=== PATIENT | male | born 1950 | race Caucasian/White ===

== ENCOUNTER 2020-07-31 09:41 | Emergency (ER) | payer MEDICARE, BC ==
[2020-07-31] MEDS ORDERED: Sodium Chloride 0.9% 10 ML Syringe FLUSH PRN (10:15)
[2020-07-31] MEDS ORDERED: HYDROmorphone 0.5 MG/0.5 ML Syringe IVPUSH ONE ×2 (10:25→12:24)
[2020-07-31] MEDS ORDERED: Ondansetron 4 MG/2 ML SDV IVPUSH ONE (10:25)
[2020-07-31] MEDS ORDERED: Sodium Chloride 0.9% 1,000 ML IV SCH (10:30)
--- NOTE | 2020-07-31 11:52 | EDM.PDOC ---
ED HPI GENERAL MEDICAL PROBLEM - General Chief Complaint: Abdominal Pain Stated Complaint: ABDOMINAL PAIN Time Seen by Provider: 07/31/20 10:14 Source of Information: Reports: Patient, RN Notes Reviewed - History of Present Illness INITIAL COMMENTS - FREE TEXT/NARRATIVE: 69 YO male with onset of R upper quad pain and upper mid abd pain last evening that continue all night and continues today. He has been nauseated, not vomiting. No obvious fever or chills. He had similar sx about a yr ago, work up at that time showed that he "has gallstones" States he has been putting off surgery. Had been doing OK up until yesterday. 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 - Infectious Disease History Infectious Disease History: Reports: Chicken Pox - Past Surgical History HEENT Surgical History: Reports: Tonsillectomy Social & Family History - Tobacco Use Tobacco Use Status *Q: Never Tobacco User Second Hand Smoke Exposure: No - Caffeine Use Caffeine Use: Reports: Coffee - Recreational Drug Use Recreational Drug Use: No ED ROS GENERAL - Review of Systems Review Of Systems: See Below Constitutional: Denies: Fever, Chills HEENT: Reports: No Symptoms Respiratory: Denies: Shortness of Breath Cardiovascular: Denies: Chest Pain GI/Abdominal: Reports: Abdominal Pain, Nausea. Denies: Diarrhea, Vomiting Musculoskeletal: Reports: Back Pain (mild) Skin: Denies: Rash Neurological: Reports: Dizziness (mild) ED EXAM, GI/ABD - Physical Exam Exam: See Below General Appearance: Alert, Moderate Distress Throat/Mouth: Other (oral mucosa dry) Head: Atraumatic Neck: Supple Respiratory/Chest: No Respiratory Distress, Lungs Clear, Normal Breath Sounds Cardiovascular: Regular Rate, Rhythm GI/Abdominal Exam: Tender (Upper mid abd and RUQ). No: Guarding, Rebound Back Exam: No: CVA Tenderness (L), CVA Tenderness (R) Extremities: Normal Inspection, Normal Range of Motion. No: Leg Pain, Increased Warmth, Redness Neurological: Alert, Oriented, No Motor/Sensory Deficits Skin Exam: Warm, Dry, Normal Color Course - Vital Signs Last Recorded V/S: Last Vital Signs Temp 97.2 F 07/31/20 09:58 Pulse 63 07/31/20 09:58 Resp 18 07/31/20 09:58 BP 175/101 H 07/31/20 09:58 Pulse Ox 97 07/31/20 09:58 - Orders/Labs/Meds Orders: Active Orders 24 hr Category Date Time Status Peripheral IV Care [RC] . DIRECTED Care 07/31/20 10:15 Active Abdomen Ltd [US] Stat Exams 07/31/20 10:26 Taken Sodium Chloride 0.9% [Normal Saline] 1,000 ml Med 07/31/20 10:30 Active IV ASDIRECTED Sodium Chloride 0.9% [Saline Flush] Med 07/31/20 10:15 Active 10 ml FLUSH ASDIRECTED PRN Peripheral IV Insertion Adult [OM.PC] Stat Oth 07/31/20 10:15 Ordered Medication Orders Sodium Chloride (Normal Saline) 1,000 mls @ 150 mls/hr IV ASDIRECTED MEGAN Last Admin: 07/31/20 10:39 Dose: 150 mls/hr Documented by: RISSA Sodium Chloride (Saline Flush) 10 ml FLUSH ASDIRECTED PRN PRN Reason: Keep Vein Open Last Admin: 07/31/20 10:39 Dose: 10 ml Documented by: RISSA Labs: Laboratory Tests 07/31/20 07/31/20 07/31/20 Range/Units 10:36 10:36 10:36 WBC 8.85 (4.23-9.07) K/mm3 RBC 5.76 (4.63-6.08) M/mm3 Hgb 16.7 (13.7-17.5) gm/dl Hct 49.8 (40.1-51.0) % MCV 86.5 (79.0-92.2) fl MCH 29.0 (25.7-32.2) pg MCHC 33.5 (32.2-35.5) g/dl RDW Std Deviation 41.9 (35.1-43.9) fL Plt Count 168 (163-337) K/mm3 MPV 9.2 L (9.4-12.3) fl Neut % (Auto) 80.3 H (34.0-67.9) % Lymph % (Auto) 12.1 L (21.8-53.1) % [place] % (Auto) 7.0 (5.3-12.2) % Eos % (Auto) 0.2 L (0.8-7.0) Baso % (Auto) 0.2 (0.1-1.2) % Neut # (Auto) 7.10 H (1.78-5.38) K/mm3 Lymph # (Auto) 1.07 L (1.32-3.57) K/mm3 [place] # (Auto) 0.62 (0.30-0.82) K/mm3 Eos # (Auto) 0.02 L (0.04-0.54) K/mm3 Baso # (Auto) 0.02 (0.01-0.08) K/mm3 Sodium 142 (136-145) mEq/L Potassium 4.3 (3.5-5.1) mEq/L Chloride 105 (98-107) mEq/L Carbon Dioxide 24 (21-32) mEq/L Anion Gap 17.3 H (5-15) BUN 15 (7-18) mg/dL Creatinine 1.3 (0.7-1.3) mg/dL Est Cr Clr Drug Dosing 62.32 mL/min Estimated GFR (MDRD) 55 (>60) mL/min BUN/Creatinine Ratio 11.5 L (14-18) Glucose 112 (80-115) mg/dL Calcium 8.9 (8.5-10.1) mg/dL Total Bilirubin 8.3 H (0.2-1.0) mg/dL Direct Bilirubin (0.0-0.2) mg/dl GGT (15-85) U/L AST 614 H (15-37) U/L ALT 1319 H (16-63) U/L Alkaline Phosphatase 401 H (46-116) U/L C-Reactive Protein 3.4 H* (<1.0) mg/dL Total Protein 7.5 (6.4-8.2) g/dl Albumin 3.7 (3.4-5.0) g/dl Globulin 3.8 gm/dL Albumin/Globulin Ratio 1.0 (1-2) Lipase 89 (73-393) U/L 07/31/20 07/31/20 Range/Units 10:36 10:36 WBC (4.23-9.07) K/mm3 RBC (4.63-6.08) M/mm3 Hgb (13.7-17.5) gm/dl Hct (40.1-51.0) % MCV (79.0-92.2) fl MCH (25.7-32.2) pg MCHC (32.2-35.5) g/dl RDW Std Deviation (35.1-43.9) fL Plt Count (163-337) K/mm3 MPV (9.4-12.3) fl Neut % (Auto) (34.0-67.9) % Lymph % (Auto) (21.8-53.1) % [place] % (Auto) (5.3-12.2) % Eos % (Auto) (0.8-7.0) Baso % (Auto) (0.1-1.2) % Neut # (Auto) (1.78-5.38) K/mm3 Lymph # (Auto) (1.32-3.57) K/mm3 [place] # (Auto) (0.30-0.82) K/mm3 Eos # (Auto) (0.04-0.54) K/mm3 Baso # (Auto) (0.01-0.08) K/mm3 Sodium (136-145) mEq/L Potassium (3.5-5.1) mEq/L Chloride (98-107) mEq/L Carbon Dioxide (21-32) mEq/L Anion Gap (5-15) BUN (7-18) mg/dL Creatinine (0.7-1.3) mg/dL Est Cr Clr Drug Dosing mL/min Estimated GFR (MDRD) (>60) mL/min BUN/Creatinine Ratio (14-18) Glucose (80-115) mg/dL Calcium (8.5-10.1) mg/dL Total Bilirubin (0.2-1.0) mg/dL Direct Bilirubin 5.00 H (0.0-0.2) mg/dl GGT 634 H (15-85) U/L AST (15-37) U/L ALT (16-63) U/L Alkaline Phosphatase (46-116) U/L C-Reactive Protein (<1.0) mg/dL Total Protein (6.4-8.2) g/dl Albumin (3.4-5.0) g/dl Globulin gm/dL Albumin/Globulin Ratio (1-2) Lipase (73-393) U/L Meds: Medications Generic Name Dose Route Start Last Admin Trade Name Freq PRN Reason Stop Dose Admin Sodium Chloride 1,000 mls @ 150 mls/hr 07/31/20 10:30 07/31/20 10:39 Normal Saline IV 150 mls/hr ASDIRECTED MEGAN Administration Sodium Chloride 10 ml 07/31/20 10:15 07/31/20 10:39 Saline Flush FLUSH 10 ml ASDIRECTED PRN Administration Keep Vein Open Discontinued Medications Generic Name Dose Route Start Last Admin Trade Name Freq PRN Reason Stop Dose Admin Hydromorphone HCl 0.5 mg 07/31/20 10:25 07/31/20 10:37 Dilaudid IVPUSH 07/31/20 10:26 0.5 mg ONETIME ONE Administration Hydromorphone HCl 0.5 mg 07/31/20 12:24 07/31/20 12:35 Dilaudid IVPUSH 07/31/20 12:25 0.5 mg ONETIME ONE Administration Ondansetron HCl 4 mg 07/31/20 10:25 07/31/20 10:35 Zofran IVPUSH 07/31/20 10:26 4 mg ONETIME ONE Administration - Re-Assessments/Exams Free Text/Narrative Re-Assessment/Exam: 07/31/20 12:10. US shows multiple stones in the GB, wall is at 3.6 mm thickness. common duct dilated up to 1 cm. WBC 8,900. 80 seg, 12 L, Bili8.3, GGT 634, ast 614, ALT 1319, Alk phos 401, lipase 89. . Strong liklihood and concern for an obstructing stone based on above. Direct Bili ordered. He has had prior imaging care done at [facility]. Arranging for transfer to [facility] at this time. 07/31/20 12:53. Dr Johnson, Hospitalist accepting Phys. for transfer. We have given IV fluid, dilaudid 0.5 mg IV times 2, zofran 4 mg IV. He is still having pain but more tolerable compared to arrival. He wants to go private vehicle. His will drive him directly to [facility] at this time. Departure - Departure Time of Disposition: 12:45 Disposition: DC/Tfer to Acute Hospital 02 Condition: Serious Clinical Impression: Cholecystitis Abdominal pain Qualifiers: Abdominal location: upper abdomen, unspecified Qualified Code(s): R10.10 - Upper abdominal pain, unspecified - Discharge Information Referrals: PCP,None [Primary Care Provider] - Forms: ED Department Discharge Sepsis Event Note (ED) - Evaluation Sepsis Screening Result: No Definite Risk - Focused Exam Vital Signs: Vital Signs Temp Pulse Resp BP Pulse Ox 07/31/20 09:58 97.2 F 63 18 175/101 H 97 - My Orders Last 24 Hours: My Active Orders 07/31/20 10:15 Peripheral IV Care [RC] . DIRECTED Sodium Chloride 0.9% [Saline Flush] 10 ml FLUSH ASDIRECTED PRN Peripheral IV Insertion Adult [OM.PC] Stat 07/31/20 10:26 [employer] [US] Stat 07/31/20 10:30 Sodium Chloride 0.9% [Normal Saline] 1,000 ml IV ASDIRECTED - Assessment/Plan Last 24 Hours: My Active Orders 07/31/20 10:15 Peripheral IV Care [RC] . DIRECTED Sodium Chloride 0.9% [Saline Flush] 10 ml FLUSH ASDIRECTED PRN Peripheral IV Insertion Adult [OM.PC] Stat 07/31/20 10:26 Abdomen Ltd [US] Stat 07/31/20 10:30 Sodium Chloride 0.9% [Normal Saline] 1,000 ml IV ASDIRECTED
--- NOTE | 2020-08-01 10:34 | US ---
Limited abdominal ultrasound: Multiple real-time images of the upper right abdomen were obtained. Findings: Liver shows no focal abnormality. Visualized portions of the pancreas appear within normal limits. Gallbladder shows multiple gallstones. No gallbladder wall thickening is seen. Common bile duct is slightly enlarged at 1.3 cm. Right kidney shows no hydronephrosis or mass and has a length of 11.7 cm. Main portal vein shows normal hepatopedal flow. Impression: 1. Multiple gallstones with increased common bile duct dilatation up to 1.3 cm. 2. No additional abnormality is appreciated on right upper quadrant abdominal ultrasound exam. 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
== END 2020-07-31 13:10 ==
LOC: JD.ED 09:41
DX: K81.9 Cholecystitis, unspecified (principal); I10 Essential (primary) hypertension; Z88.0 Allergy status to penicillin
CPT/HCPCS: 36415; 76705; 80053; 82248; 82977; 83690; 85025; 86140; 96374; 96375; 96376; 99285; J1170; J2405; J7030; 99284

== ENCOUNTER 2021-05-11 12:30 | Emergency (ER) | payer MEDICARE, BC ==
[2021-05-11] MEDS ORDERED: Ondansetron 4 MG/2 ML SDV IVPUSH ONE (13:22)
[2021-05-11] MEDS ORDERED: HYDROmorphone 1 MG/ML Syringe IVPUSH ONE (13:22)
[2021-05-11] MEDS ORDERED: Dextrose 5%-0.9% NaCl 1,000 ML IV SCH (13:30)
--- NOTE | 2021-05-11 13:43 | EDM.PDOC ---
ED HPI GENERAL MEDICAL PROBLEM - General Chief Complaint: Abdominal Pain Stated Complaint: ABDOMINAL PAIN Time Seen by Provider: 05/11/21 12:59 Source of Information: Reports: Patient History Limitations: Reports: No Limitations - History of Present Illness INITIAL COMMENTS - FREE TEXT/NARRATIVE: 70-year-old male presents the emergency department today after being evaluated at [facility]. Patient states that he started having abdominal discomfort approximately 5 days ago which has progressively worsened. States it is a generalized abdominal discomfort. He denies any recent fever, chills, vomiting or diarrhea. He states he has been nauseated and not had much of an appetite. He states he has been trying to drink plenty of water to stay hydrated however drinking causes him to have increased abdominal pain. States he did have a small bowel movement this morning. Patient did have his gallbladder removed approximately and August 2020. At that time a CT scan had revealed that he has a pancreatic cystic lesion. Patient was transferred to [facility] in [place] and Dr. Simón Michele, general surgeon, oncologic surgeon, removed his gallbladder and managed his hospital stay. They had not taken any biopsies of the lesion. Patient did have a CT scan completed at [facility] today and it appears that the pancreatic cystic lesion has increased in size. Initially measuring 3.8 x 2.5 centimeters. It has increased to 5.[address] scan also revealed that there is no fluid and soft tissue stranding about the cystic lesion. Differential considerations would include interval a superimposed infection/inflammation of the cystic lesion versus aggressive/malignant transformation. Superimposed pancreatitis could not be excluded, however, the majority of the pancreatic parenchyma has a normal appearance. No evidence of pancreatic ductal dilation. The spleen is normal. Lab studies were also completed at [facility]. CBC revealed a WBC of 16.8, hemoglobin 17.6, hematocrit 49.6, platelet count 177, neutrophil percentage 86.4, glucose 118, BUN 21, creatinine 1.27, sodium 138, potassium 3.9, chloride 100, CO2 25, anion gap 17, calcium 10.2, total bilirubin 2.1 and lipase of 29. Urinalysis was essentially unremarkable. Patient denies smoking or alcohol consumption history. 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 ED EXAM, GI/ABD - Physical Exam Exam: See Below Exam Limited By: No Limitations General Appearance: Alert, WD/WN, Mild Distress Eyes: Bilateral: Normal Appearance Ears: Normal External Exam, Hearing Grossly Normal Nose: Normal Inspection Throat/Mouth: Normal Inspection, Normal Lips, Normal Voice, No Airway Compromise Head: Atraumatic Neck: Normal Inspection, Supple Respiratory/Chest: No Respiratory Distress, Lungs Clear, Normal Breath Sounds, No Accessory Muscle Use, Chest Non-Tender Cardiovascular: Normal Peripheral Pulses, Regular Rate, Rhythm, No Edema, No Murmur GI/Abdominal Exam: Normal Bowel Sounds, Soft, Distended (Male) Exam: Deferred Rectal (Males) Exam: Deferred Back Exam: Normal Inspection Extremities: Normal Inspection Neurological: Alert, Oriented, Normal Cognition Psychiatric: Normal Affect, Normal Mood Skin Exam: Warm, Dry, Intact, Normal Color, No Rash Lymphatic: No Adenopathy Course - Vital Signs Text/Narrative:: As stated above patient presents with generalized abdominal discomfort that started 5 days ago he does have a history of a complex pancreatic cystic lesion which appears to have increased in size. Physical exam reveals an ill-appearing white male. Abdomen is slightly distended and tender in all quadrants. Bowel tones are positive. Labs have already been completed at [facility] however we will also obtain blood cultures x2 as well as a lactic acid level. We will start the patient on D5 NS 250 mils an hour as he has not been eating or drinking much for the past 5 days, Dilaudid for the abdominal discomfort and Zofran. I have attempted to phone Dr. Michele at [facility] in [place]. I am awaiting a callback from his nurse. Last Recorded V/S: Last Vital Signs Temp 98.8 F 05/11/21 13:06 Pulse 58 L 05/11/21 13:06 Resp 16 05/11/21 13:06 BP 183/91 H 05/11/21 13:06 Pulse Ox 98 05/11/21 13:06 - Orders/Labs/Meds Orders: Active Orders 24 hr Category Date Time Status BLOOD CULTURE [MREF] Stat Lab 05/11/21 13:44 Received BLOOD CULTURE [MREF] Stat Lab 05/11/21 13:44 Received Blood Culture x2 Reflex Set [OM.PC] Stat Oth 05/11/21 13:36 Ordered Labs: Laboratory Tests 05/11/21 05/11/21 Range/Units 13:44 15:11 Lactic Acid 1.5 (0.4-2.0) mmol/L SARS-CoV-2 RNA (SIVAN) Negative (NEGATIVE) Meds: Medications Discontinued Medications Generic Name Dose Route Start Last Admin Trade Name Fozia PRN Reason Stop Dose Admin Hydromorphone HCl 1 mg 05/11/21 13:22 05/11/21 13:47 Hydromorphone 1 Mg/Ml Syringe IVPUSH 05/11/21 13:23 1 mg ONETIME ONE Administration Hydromorphone HCl 0.5 mg 05/11/21 15:30 05/11/21 15:40 Hydromorphone 0.5 Mg/0.5 Ml Syringe IVPUSH 05/11/21 15:31 0.5 mg ONETIME ONE Administration Dextrose/Sodium Chloride 1,000 mls @ 250 mls/hr 05/11/21 13:30 05/11/21 13:49 Dextrose 5%-Normal Saline IV 250 mls/hr ASDIRECTED MEGAN Administration Sodium Chloride 1,000 mls @ 150 mls/hr 05/11/21 15:30 05/11/21 15:40 Normal Saline IV 150 mls/hr ASDIRECTED MEGAN Administration Ondansetron HCl 4 mg 05/11/21 13:22 05/11/21 13:45 Ondansetron 4 Mg/2 Ml Sdv IVPUSH 05/11/21 13:23 4 mg ONETIME ONE Administration - Re-Assessments/Exams Free Text/Narrative Re-Assessment/Exam: 05/11/21 14:20 Lactic acid returns at 1.5. Blood cultures are pending. I have attempted to call Dr. Michele back, however he is not on-call today. Clinical certified nursing assistant instructor did page , on-call surgeon, however he was not available. They state he will call me back in about 20 to 30 minutes. 05/11/21 15:00 Dr. Barton did return my call and he looked at the patient's CT scan and does not feel that there is anything surgical at this time. He states that the patient does likely need to be admitted and be followed by GI and have a ERCP completed. I then did phone [facility] in [place] and spoke to 1 call auto service representative. She discussed the case with the on-call GI specialist, , who states that the patient does need to come down and be followed and evaluated. ,hospitalist, discussed the case with myself and he has accepted care of the patient. Departure - Departure Time of Disposition: 17:20 Disposition: DC/Tfer to [facility] 02 Condition: Good Clinical Impression: Pancreatitis Qualifiers: Chronicity: acute Pancreatitis type: unspecified pancreatitis type Acute pancreatitis complication: unspecified Qualified Code(s): K85.90 - Acute pancreatitis without necrosis or infection, unspecified - Discharge Information Referrals: Clarence Beasley MD [Primary Care Provider] - Forms: ED Department Discharge Sepsis Event Note (ED) - Evaluation Sepsis Screening Result: No Definite Risk - My Orders Last 24 Hours: My Active Orders 05/11/21 13:36 Blood Culture x2 Reflex Set [OM.PC] Stat 05/11/21 13:44 BLOOD CULTURE [MREF] Stat BLOOD CULTURE [MREF] Stat - Assessment/Plan Last 24 Hours: My Active Orders 05/11/21 13:36 Blood Culture x2 Reflex Set [OM.PC] Stat 05/11/21 13:44 BLOOD CULTURE [MREF] Stat BLOOD CULTURE [MREF] Stat
[2021-05-11] MEDS ORDERED: Sodium Chloride 0.9% 1,000 ML IV SCH (15:30)
[2021-05-11] MEDS ORDERED: HYDROmorphone 0.5 MG/0.5 ML Syringe IVPUSH ONE (15:30)
== END 2021-05-11 17:00 ==
LOC: JD.ED 12:30
DX: K85.90 Acute pancreatitis without necrosis or infection, unspecified (principal); I10 Essential (primary) hypertension; Z88.0 Allergy status to penicillin; Z20.822 Contact with and (suspected) exposure to COVID-19
CPT/HCPCS: 36415; 83605; 87040; 96374; 96375; 96376; 99285; J1170; J2405; J7030; J7042; U0002